=== PATIENT | male | born 1965 | race Caucasian/White ===

== ENCOUNTER 2023-01-11 17:26 | Emergency (ER) | payer SELFPAY ==
[2023-01-11 19:26] LABS: CORONAVIRUS COVID-19 NAA NEGATIVE (NEGATIVE)
[2023-01-11 19:33] LABS: ESTIMATED GFR 70 mL/min (>60)
== END 2023-01-11 20:20 | disposition home or self-care (01) ==
LOC: JD.ED 17:26
DX: R42 Dizziness and giddiness (principal); R55 Syncope and collapse; F17.210 Nicotine dependence, cigarettes, uncomplicated; Z20.822 Contact with and (suspected) exposure to COVID-19
CPT/HCPCS: 0241U; 36415; 70450; 71045; 72125; 80053; 81001; 82947; 83605; 83735; 83880; 84484; 85025; 85379; 85610; 85730; 86140; 93005; 99285; 93010; 99283